=== PATIENT | female | born 1950 | race Caucasian/White ===

== ENCOUNTER 2021-07-23 16:28 | Emergency (ER) | payer OTHER ==
[2021-07-23 17:27] LABS: BASOPHIL 0.4 % (0-2); EOSINOPHIL 0 % (0-7); HCT 38.9 % (37.0-47.0); LYMPHOCYTE 13.9 % (15-48); MCH 29.3 pg (25.0-31.0); MCHC 33.4 g/dL (32.0-36.0); MCV 87.6 fL (78.0-100.0); MONOCYTE 1.7 % (0-12); MPV 10.6 fL (6.0-9.5); NEUTROPHIL 83.6 % (41-80); NRBC 0; PLT 218 K/uL (150-400); RBC 4.44 M/uL (4.20-5.40); RDW 12.5 % (11.5-14.0); WBC 7.5 K/uL (4.0-10.5)
[2021-07-23 17:43] LABS: INR 1.02 (0.9-1.2); PROTHROMBIN TIME 12.8 SECONDS (11.8-13.4)
[2021-07-23 17:50] LABS: BUN/CREAT RATIO (CALC) 28.1 RATIO; CREATININE 0.89 mg/dL (0.51-0.95); POTASSIUM 5.3 mmol/L (3.5-5.1)
[2021-07-23 17:57] LABS: PRO-BNP 179 pg/mL (<125)
== END 2021-07-23 19:11 | disposition home or self-care (01) ==
LOC: FER 16:28
PROVIDERS: Nurse Practitioner Family
DX: E11.65 Type 2 diabetes mellitus with hyperglycemia (principal); R03.0 Elevated blood-pressure reading, without diagnosis of hypertension; Z88.5 Allergy status to narcotic agent; Z88.6 Allergy status to analgesic agent
CPT/HCPCS: 36415; 71045; 80048; 83880; 84484; 85025; 85610; 93005